=== PATIENT | female | born 1955 | race Caucasian/White ===

== ENCOUNTER 2017-03-12 13:52 | Emergency (ER) | payer OTHER ==
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
[2017-03-12] MEDS: FAMOTIDINE 20 MG TAB PO ONE (14:16)
[2017-03-12] MEDS: diphenhydrAMINE 25 MG CAP PO ONE (14:16)
[2017-03-12 14:30] VITALS: BP 124/78; PULSE 72; RESP 18; TEMP 98.2; O2SAT 96
== END 2017-03-12 14:30 | disposition home or self-care (01) ==
DX: T63.443A Toxic effect of venom of bees, assault, initial encounter (principal)

== ENCOUNTER → 2017-06-20 | Outpatient (CLI) | payer BC, OTHER | LOC: FIMAGING 15:48 | PROVIDERS: ATTEND Internal Medicine | DX: Z12.31 Encounter for screening mammogram for malignant neoplasm of breast (principal); Z80.3 Family history of malignant neoplasm of breast | CPT/HCPCS: G0202 ==

== ENCOUNTER → 2018-07-23 | Outpatient (CLI) | payer OTHER | LOC: FIMAGING 08:53 | PROVIDERS: ATTEND Internal Medicine | DX: Z12.31 Encounter for screening mammogram for malignant neoplasm of breast (principal); Z80.3 Family history of malignant neoplasm of breast ==